=== PATIENT | male | born 1955 | race American Indian/Alaskan Native ===

== ENCOUNTER 2017-10-19 11:30 | Emergency (ER) | payer BC ==
[2017-10-19 12:32] LABS: Basophils % (Auto) 0.6 % (0.0-1.8); Eosinophils % (Auto) 0.3 % (0.0-4.3); Hematocrit 44.5 % (35.5-45.6); Hemoglobin 14.7 gm/dl (11.8-15.2); Lymphocytes % (Auto) 12.1 % (13.4-35.0); Mean Corpuscular HGB Conc 33 % (32-34); Mean Corpuscular Hemoglobin 33 pg (28-32); Mean Corpuscular Volume 101 fl (84-94); Monocytes # (Auto) 0.2 K/mm3 (0.0-0.8); Monocytes % (Auto) 2.8 % (0.0-7.3); Platelet Count 178 K/mm3 (140-440); Red Cell Distribution Width 13.3 % (13.2-15.2)
[2017-10-19 12:48] LABS: BUN/Creatinine Ratio 21; Blood Urea Nitrogen 15 mg/dL (9-20); Calcium 8.9 mg/dL (8.4-10.2); Hemolysis Index 13
--- NOTE | 2017-10-19 17:48 | Emergency Department Report ---
ED Dizziness HPI - General Chief Complaint: Dizziness Stated Complaint: DIZZINESS Time Seen by Provider: 10/19/17 16:47 Source: patient Mode of arrival: Ambulatory Limitations: No Limitations - History of Present Illness Initial Comments: Reports being dizzy since this morning, but reports coughing for 2 months, admits to a sore throat, denies previous history, reports occasional chest pain , says it feels tight, also reports that it feel like it's hard for him to swallow from time to time. reports that the patient lost his vision in his left eye. He got up from the bed this morning, walked to the kitchen and then reported that he had trouble seeing from his left eye. He did drink some water because he felt like he had some food stuck in his throat. He had an MRI a week ago to look at his thyroid. He had it done at [facility] [place]. Admits to drinking last night, vodka, had a couple of shots. MD Complaint: dizziness -: days(s) (1) Timing: sudden onset Description: off-balance, near-syncope History of Same: No History of Trauma: No Severity: mild Improves With: nothing Worsens With: nothing Associated Symptoms: chest pain, cough (worse at night), shortness of breath ( "comes and goes" all the time). denies: fever/chills, rash - Related Data Home Medications Medication Instructions Recorded Confirmed Last Taken Amoxicillin 11/06/15 Unknown Previous Rx's Medication Instructions Recorded Last Taken Type Famotidine [Pepcid] 20 mg PO BID #60 tablet 11/07/15 Unknown Rx amLODIPine [Norvasc] 5 mg PO DAILY #30 tab 11/07/15 Unknown Rx ALBUTEROL Inhaler [ProAir HFA 2 puff IH Q4HR PRN #1 inhalation 10/19/17 Unknown Rx Inhaler] methylPREDNISolone [Medrol Dose 4 mg PO QAM #1 pack 10/19/17 Unknown Rx Marco] Allergies Allergy/AdvReac Type Severity Reaction Status Date / Time No Known Allergies Allergy Verified 10/19/17 18:10 ED Review of Systems ROS: Stated complaint: DIZZINESS Other details as noted in HPI Comment: All other systems reviewed and negative Constitutional: see HPI Eyes: as per HPI, vision change. denies: eye pain, eye discharge ENT: as per HPI, throat pain Respiratory: see HPI, cough Cardiovascular: chest pain. denies: palpitations, dyspnea on exertion Endocrine: no symptoms reported Gastrointestinal: as per HPI. denies: abdominal pain, nausea, vomiting, diarrhea Genitourinary: as per HPI Musculoskeletal: as per HPI Skin: as per HPI Neurological: as per HPI, headache (slight headache, none this morning) Psychiatric: as per HPI Hematological/Lymphatic: as per HPI ED Past Medical Hx - Past Medical History Hx Hypertension: Yes - Social History Smoking Status: Current Every Day Smoker Substance Use Type: Alcohol (every day use, vodka) - Medications Home Medications: Home Medications Medication Instructions Recorded Confirmed Last Taken Type Amoxicillin 11/06/15 Unknown History Famotidine [Pepcid] 20 mg PO BID #60 tablet 11/07/15 Unknown Rx amLODIPine [Norvasc] 5 mg PO DAILY #30 tab 11/07/15 Unknown Rx ALBUTEROL Inhaler [ProAir HFA 2 puff IH Q4HR PRN #1 inhalation 10/19/17 Unknown Rx Inhaler] methylPREDNISolone [Medrol Dose 4 mg PO QAM #1 pack 10/19/17 Unknown Rx Marco] ED Physical Exam - General Limitations: No Limitations General appearance: alert, in no apparent distress - Head Head exam: Present: atraumatic, normocephalic - Eye Eye exam: Present: normal appearance, PERRL, EOMI - ENT ENT exam: Present: normal exam, other (eythema to posterior pharynx) - Neck Neck exam: Present: normal inspection - Respiratory Respiratory exam: Present: normal lung sounds bilaterally. Absent: respiratory distress, wheezes, rales, rhonchi, stridor - Cardiovascular Cardiovascular Exam: Present: regular rate, normal rhythm, normal heart sounds - GI/Abdominal GI/Abdominal exam: Present: soft, normal bowel sounds - Extremities Exam Extremities exam: Present: normal inspection, full ROM - Back Exam Back exam: Present: normal inspection, full ROM - Neurological Exam Neurological exam: Present: alert, oriented X3, CN II-XII intact - Psychiatric Psychiatric exam: Present: normal affect, normal mood - Skin Skin exam: Present: warm, dry, intact ED Course Vital Signs 10/19/17 10/19/17 11:43 17:33 Temperature 98.4 F 99.3 F Pulse Rate 89 76 Respiratory 16 18 Rate Blood Pressure 157/81 Blood Pressure 143/96 [Right] O2 Sat by Pulse 96 97 Oximetry - Reevaluation(s) Reevaluation #1: 10/19/17 22:51 Upon review of his laboratory findings and his chest x-ray as well as his head CT, it seems pretty clear that the patient has COPD that has not been formally diagnosed yet by his primary care physician. At this time I will go ahead and treat him as such. We will do a Medrol Dosepak, give him an albuterol inhaler, and smoking cessation guidelines, and tell him to follow up with his primary care doctor. At this time his oxygen is maintaining in the 90s, in the low 90s. His orthostatic vital signs were normal. 3 sets of troponins were also negative. He is to follow-up with his primary care doctor. He expresses understanding. ED Medical Decision Making - Lab Data Result diagrams: 10/19/17 12:11 10/19/17 12:11 Critical care attestation.: If time is entered above; I have spent that time in minutes in the direct care of this critically ill patient, excluding procedure time. ED Disposition Clinical Impression: COPD exacerbation Disposition: [id number] TO HOME OR SELFCARE Is pt being admited?: No Does the pt Need Aspirin: No Condition: Stable Instructions: Chronic Obstructive Pulmonary Disease (ED) Additional Instructions: Rest, fluids, follow up with your primary care doctor of choice, stop smoking, take medications as directed, return as needed. Call 911 if you think you're having a life threatening emergency. Prescriptions: ALBUTEROL Inhaler [ProAir HFA Inhaler] 2 puff IH Q4HR PRN #1 inhalation PRN Reason: Shortness Of Breath methylPREDNISolone [Medrol Dose Marco] 4 mg PO QAM #1 pack
[2017-10-19 18:37] LABS: Bilirubin,Urine NEG (Negative); Blood,Urine MOD (Negative); Color,Urine Yellow (Yellow); Mucus,Urine FEW /HPF; Protein,Urine <15 mg/dL mg/dL (Negative)
[2017-10-19 19:18] LABS: Amphetamine Screen,Urine PRESUMPTIVE NEGATIVE; Benzodiazepines Screen,Urine PRESUMPTIVE NEGATIVE; Cannabinoid Screen,Urine PRESUMPTIVE NEGATIVE; Cocaine Screen,Urine PRESUMPTIVE NEGATIVE; Methadone Screen,Urine PRESUMPTIVE NEGATIVE; Opiate Screen,Urine PRESUMPTIVE NEGATIVE
--- NOTE | 2017-10-19 19:42 | Cat Scan Report ---
FINAL REPORT PROCEDURE: CT HEAD/BRAIN WO CON TECHNIQUE: Computerized tomography of the head was performed without contrast material. HISTORY: dizziness COMPARISON: No prior studies are available for comparison. FINDINGS: Brain: There is no evidence of intracranial hemorrhage. No parenchymal hemorrhage is seen. No mass lesions or mass effect is identified. No abnormal extra-axial fluid collections or masses are seen. There is nonspecific mineralization of the basal ganglia bilaterally. Ventricles: The, sulcal pattern and fissures are prominent consistent with atrophy. The ventricles are normal size and are midline. Bones: No evidence of acute fracture. Paranasal sinuses: There is mild nodular mucosal thickening in the visualized portions of the maxillary sinuses. There is some patchy mucosal disease scattered in the ethmoid air cells. There is also nodular mucosal thickening anteriorly in the sphenoid sinuses. No air-fluid levels are visualized Mastoid air cells: Visualized portions appear clear. IMPRESSION: There is evidence of mild atrophy. No acute intracranial abnormalities are identified. Mild paranasal sinus disease as described.
[2017-10-19] MEDS ORDERED: DUONEB *Not for PRN Use IH ONE (22:00)
--- NOTE | 2017-10-19 22:37 | XRay Report ---
FINAL REPORT PROCEDURE: XR CHEST ROUTINE 2V TECHNIQUE: PA and lateral chest radiographs were obtained. CPT 46483 HISTORY: cough COMPARISON: No prior studies are available for comparison. FINDINGS: Lungs are hyperinflated. Interstitial markings mildly coarsened. No focal infiltrates masses or effusions are identified. No evidence of pneumothorax. There appears to be a small calcified granuloma near the right lung base measuring 3.3 millimeters. Heart size and pulmonary vasculature appear normal. No acute bony abnormalities are seen. IMPRESSION: COPD with mild fibrosis. Prior granulomatous disease. No acute abnormality is identified. If symptoms persist consider follow-up chest x-ray or CT scan of the chest for further evaluation. .
[2017-10-20 00:19] VITALS: BP 142/90
== END 2017-10-20 00:28 | disposition home or self-care (01) ==
LOC: ED 11:30
DX: J44.1 Chronic obstructive pulmonary disease with (acute) exacerbation (principal); R42 Dizziness and giddiness; R51 Headache; I10 Essential (primary) hypertension; F17.200 Nicotine dependence, unspecified, uncomplicated; Z79.899 Other long term (current) drug therapy
CPT/HCPCS: 36415; 70450; 71046; 80048; 80307; 81001; 84484; 85025; 93005; 93010; 94640; 96374; 99285; G0480; J2930; 80320